=== PATIENT | female | born 1985 | race African-American/Black ===

== ENCOUNTER 2018-06-07 06:07 | Inpatient (IN) ==
[2018-06-09 08:03] VITALS: BP 132/74
== END 2018-06-09 13:15 | disposition home or self-care (01) | DRG 765 ==
LOC: N.LDOUT 06:07 → N.LD 06:11 → N.OB 13:43
PROVIDERS: ADMIT Obstetrics & Gynecology; ATTEND Obstetrics & Gynecology
PROC: LDCSECT (ICD-10-PCS; 2018-06-07 09:30)